=== PATIENT | female | born 1995 | race Caucasian/White ===

== ENCOUNTER 2019-11-14 04:50 | Inpatient (IN) | payer BC, SELFPAY ==
[2019-11-14] VITALS (131 sets, daily range): BP systolic 81–151; BP diastolic 38–113; PULSE 51–161; TEMP 36.8–37.3; O2SAT 95–100; BMI 35.2
[2019-11-14 05:36] LABS: Basophils Percent Auto 0.3 % (0.2-1.2); Eosinophils Absolute Auto 0.1 K/mm3 (0-0.3); Eosinophils Percent Auto 0.9 % (0-4.4); Hematocrit 34.4 % (37.0-47.0); Hemoglobin 11.1 g/dL (12.0-15.0); Immature Granulocyte Absolute 0.15 K/mm3 (0.00-0.031); Lymphocytes Percent Auto 23.5 % (18.3-44.2); Mean Corpuscular HGB Conc 32.3 g/dl (32-36); Mean Corpuscular Volume 83.7 fl (80-100); Mean Platelet Volume 11.8 fl (7.4-10.4); Monocytes Percent Auto 6.8 % (2.6-8.5); Neutrophils Absolute Auto 10.1 K/mm3 (1.3-6.7); Neutrophils Percent Auto 67.5 % (45.5-73.1); Platelet Count Result 253 k/mm3 (150-375); Red Blood Count 4.11 M/mm3 (4.2-5.4); White Blood Count 14.9 K/mm3 (4.5-10.0)
--- NOTE | 2019-11-14 05:36 | LDADM ---
This patient, Marlyn Loya, was admitted to Labor/Delivery/Recovery 105 on 11/14/19 at 04:50. Plans for labor, pain management and were discussed with patient. Patient/family oriented to hospital policies and general routines including ID bracelet, bed and alarms, visiting hours, pain management, procedures, bathroom and other care routines, personal items, smoking policy, room service/diet and guest tray routines, security routines, and visiting hours. Patient/Family are encouraged to report perceived risks to care and to ask questions if they do not understand what they are told or what they should do. See OBIX for further documentation.
[2019-11-14] MEDS: LACTATED RINGERS 1,000 ML 125 ML IV CONT ×4 (05:37→19:59)
[2019-11-14] MEDS: AMPICILLIN 2 GM/NS 100 ML 2 GM/100 ML BAG IVPB (05:39)
--- NOTE | 2019-11-14 06:42 | PM.IMHP ---
H&P: HPI History of Present Illness Chief complaint: INDUCTION OF LABOR Narrative: Marlyn Loya is a 24 year old female with a last menstrual period 02/07/2019, EDC of 11/14/2019 confirmed by 9 week ultrasound presents at term in for induction of labor. She is positive for group B strep she had a positive antibody screen which remained low an insignificant. She has received 1 dose of ampicillin at this time Review of Systems Review of Systems: All systems reviewed & are unremarkable except as noted in HPI and below PMFSH Family History Family History Other Unknown family medical history Social History Social History Smoking status: Never smoker Substance use: never Spiritual care concerns: No Meds Home Medications and Allergies Home Medications Medication Instructions Recorded Confirmed Type PNV cmb#95-ferrous fumarate-FA 1 tablet PO DAILY 10/17/19 10/17/19 History [] Allergies Allergy/AdvReac Type Severity Reaction Status Date / Time No Known Allergies Allergy Verified 10/17/19 13:37 Vital Signs Vital Signs - 24 hr 11/14/19 05:30 11/14/19 05:58 11/14/19 06:01 Temperature 99.1 F Pulse Rate 61 79 Blood Pressure 137/80 138/77 11/14/19 06:31 Temperature Pulse Rate 67 Blood Pressure 117/69 Exam Const: General: no acute distress Eyes: General: appearance normal, both eyes and all related structures Neck: Neck: supple and no JVD Thyroid: thyroid normal Resp: Effort & Inspection: normal respiratory effort Auscultation: clear to auscultation bilaterally Cardio: Rate: regular rate Rhythm: regular rhythm Skin: General skin exam: no rashes or lesions noted Extrem: General: normal to inspection and no edema Psych: Mental Status: mental status grossly normal Affect: normal affect H&P: Results Labs Labs: Short CBC 11/14/19 Range/Units 05:30 WBC 14.9 H (4.5-10.0) K/mm3 Hgb 11.1 L (12.0-15.0) g/dL Hct 34.4 L (37.0-47.0) % Plt Count 253 (150-375) k/mm3 Assessment and Plan Additional Plan impression: Postdates and positive group B strep Plan: Medical induction labor, spontaneous vaginal delivery is expected, group B strep prophylaxis is undertaken
[2019-11-14] MEDS: AMPICILLIN 1 GM/NS 50 ML 1 GM/50 ML BAG IVPB ×4 (09:35→21:51)
--- NOTE | 2019-11-14 11:33 | P.PNOB_ITS ---
OB - PN: Subj Subjective Date/time seen: 11/14/19 11:33 cx 3/80/-1 fhts reassuring iupc placed epidural soon OB - PN: Obj Data Labs CBC & Chem 7: 11/14/19 05:30 Labs: Laboratory Results - last 24 hr 11/14/19 11/14/19 05:30 05:30 WBC 14.9 H RBC 4.11 L Hgb 11.1 L Hct 34.4 L MCV 83.7 MCH 27.0 MCHC 32.3 RDW 14.0 Plt Count 253 MPV 11.8 H Immature Gran % (Auto) 1.0 H Neut % (Auto) 67.5 Lymph % (Auto) 23.5 [place] % (Auto) 6.8 Eos % (Auto) 0.9 Baso % (Auto) 0.3 Lymph # (Auto) 3.50 H [place] # (Auto) 1.0 H Eos # (Auto) 0.1 Baso # (Auto) 0.0 Abs Immat Gran (auto) 0.15 H Absolute Neuts (auto) 10.1 H Absolute Nucleated RBC 0.0 Nucleated RBC % 0.0 Antibody Screen Positive OB - PN A/P Time Spent With Patient Time: Total time spent is greater than 50% in coordination of care (as documented) at patient's floor/unit and/or counseling patient:
--- NOTE | 2019-11-14 13:11 | WPDANESEPP ---
Anes - Eval Pre Procedure Procedure: Labor Epidural Date/Time: 11/14/19 13:11 Pre Op Diagnosis: INDUCTION OF LABOR Patient Data Age: 24 Gender: F Height: 1.73 m Weight: 105 kg Last Vital Signs Temp 37.0 C 11/14/19 11:30 Pulse 58 L 11/14/19 13:01 BP 129/65 11/14/19 13:01 Allergies Allergy/AdvReac Type Severity Reaction Status Date / Time No Known Allergies Allergy Verified 10/17/19 13:37 Home Medications Medication Instructions Recorded Confirmed Type PNV cmb#95-ferrous fumarate-FA 1 tablet PO DAILY 10/17/19 10/17/19 History [] hydrocodone-acetaminophen [Meno] 1 tablet PO Q4H PRN #20 tablet 11/14/19 Rx Laboratory Tests 11/14/19 11/14/19 11/14/19 05:30 05:30 05:30 WBC 14.9 K/mm3 H K/mm3 (4.5-10.0) RBC 4.11 M/mm3 L M/mm3 (4.2-5.4) Hgb 11.1 g/dL L g/dL (12.0-15.0) Hct 34.4 % L % (37.0-47.0) MCV 83.7 fl fl (80-100) MCH 27.0 pg pg (26-34) MCHC 32.3 g/dl g/dl (32-36) RDW 14.0 % % (11.5-14.5) Plt Count 253 k/mm3 k/mm3 (150-375) MPV 11.8 fl H fl (7.4-10.4) Immature Gran % (Auto) 1.0 % H % (0-0.5) Neut % (Auto) 67.5 % % (45.5-73.1) Lymph % (Auto) 23.5 % % (18.3-44.2) [place] % (Auto) 6.8 % % (2.6-8.5) Eos % (Auto) 0.9 % % (0-4.4) Baso % (Auto) 0.3 % % (0.2-1.2) Lymph # (Auto) 3.50 K/mm3 H K/mm3 (0.9-3.2) [place] # (Auto) 1.0 K/mm3 H K/mm3 (0.1-0.6) Eos # (Auto) 0.1 K/mm3 K/mm3 (0-0.3) Baso # (Auto) 0.0 K/mm3 K/mm3 (0.0-0.1) Abs Immat Gran (auto) 0.15 K/mm3 H K/mm3 (0.00-0.031) Absolute Neuts (auto) 10.1 K/mm3 H K/mm3 (1.3-6.7) Absolute Nucleated RBC 0.0 K/mm3 K/mm3 (0.0-0.012) Nucleated RBC % 0.0 % % (0.0-0.2) RPR Pending Blood Type Pending Antibody Screen Positive Antibody Identification Pending Antigen Identification Pending JANE, IgG Interpret Pending JANE, Poly Interpret Pending JANE, Complement Interp Pending Patient hx anesthesia problems: none Family hx anesthesia problems: none PMFSH Family History Family History Other Unknown family medical history Social History Social History Smoking status: Never smoker Substance use: never Spiritual care concerns: No Exam Day of Procedure 11/14/19 13:11 Patient weight: obese Heart: regular rate and rhythm Lungs: normal air movement Airway: Mallampati scale class II Neurological: alert and oriented
[2019-11-14] MEDS: ONDANSETRON INJ 4 MG/2 ML VIAL IV PUSH ×2 (13:16→20:01)
--- NOTE | 2019-11-14 14:19 | P.PNOB_ITS ---
OB - PN: Subj Subjective Date/time seen: 11/14/19 14:19 cx4 by rn exam fhts rassuring epidural in OB - PN: Obj Data Labs CBC & Chem 7: 11/14/19 05:30 Labs: Laboratory Results - last 24 hr 11/14/19 11/14/19 05:30 05:30 WBC 14.9 H RBC 4.11 L Hgb 11.1 L Hct 34.4 L MCV 83.7 MCH 27.0 MCHC 32.3 RDW 14.0 Plt Count 253 MPV 11.8 H Immature Gran % (Auto) 1.0 H Neut % (Auto) 67.5 Lymph % (Auto) 23.5 [place] % (Auto) 6.8 Eos % (Auto) 0.9 Baso % (Auto) 0.3 Lymph # (Auto) 3.50 H [place] # (Auto) 1.0 H Eos # (Auto) 0.1 Baso # (Auto) 0.0 Abs Immat Gran (auto) 0.15 H Absolute Neuts (auto) 10.1 H Absolute Nucleated RBC 0.0 Nucleated RBC % 0.0 Antibody Screen Positive OB - PN A/P Time Spent With Patient Time: Total time spent is greater than 50% in coordination of care (as documented) at patient's floor/unit and/or counseling patient:
[2019-11-14] MEDS: PHENYLEPHRINE 1,000 MCG/10 ML SYRINGE 100 MCG IV PUSH ×2 (14:36→15:29)
--- NOTE | 2019-11-14 16:34 | P.PNOB_ITS ---
OB - PN: Subj Subjective Date/time seen: 11/14/19 16:34 cx still 4 but head coming down fhts reassuring good ucs per iupc OB - PN: Obj Data Labs CBC & Chem 7: 11/14/19 05:30 Labs: Laboratory Results - last 24 hr 11/14/19 11/14/19 11/14/19 05:03 05:30 05:30 WBC 14.9 H RBC 4.11 L Hgb 11.1 L Hct 34.4 L MCV 83.7 MCH 27.0 MCHC 32.3 RDW 14.0 Plt Count 253 MPV 11.8 H Immature Gran % (Auto) 1.0 H Neut % (Auto) 67.5 Lymph % (Auto) 23.5 [place] % (Auto) 6.8 Eos % (Auto) 0.9 Baso % (Auto) 0.3 Lymph # (Auto) 3.50 H [place] # (Auto) 1.0 H Eos # (Auto) 0.1 Baso # (Auto) 0.0 Abs Immat Gran (auto) 0.15 H Absolute Neuts (auto) 10.1 H Absolute Nucleated RBC 0.0 Nucleated RBC % 0.0 Blood Type A Positive Antibody Screen Positive Antibody Identification Anti-S JANE, IgG Interpret Not Performed JANE, Poly Interpret Negative JANE, Complement Interp Not Performed Enhanced Crossmatch See Detail OB - PN A/P Time Spent With Patient Time: Total time spent is greater than 50% in coordination of care (as docum ented) at patient's floor/unit and/or counseling patient:
--- NOTE | 2019-11-14 23:12 | PM.OBPRVD ---
OB - Delivery Note Procedure Procedure: Patient pushed for a spontaneous vaginal delivery. The fetus was delivered atraumatically and placed on the maternal abdomen. The cord was clamped and cut after 1 minute of life. The cord was double clamped and cut and a segment of cord was collected for cord gases. Cord blood was collected for blood type and Coomb's testing. The placenta delivered spontaneously and was noted to be intact. The perineum was inspected and there were no perineal lacerations. A small periurethral laceration was noted. The laceration was repaired with 3-0 vicryl in the usual fashion. The uterus was firm and good hemostasis was noted. The patient and fetus were stable in the delivery room. events: Labor Induction Delivery augmentation: pitocin Delivery monitor: external FHT Route of delivery: Episiotomy description: None Laceration description: Periurethral - 1st Degree Delivery repair: vicryl Specimen: No Estimated blood loss (mL): 250 Anesthesia type: Epidural Disposition: floor () Complications: No immediate complications Baby Date of : 11/14/19 Time of : 23:02 Weeks of gestation at delivery: 40 gender: Male Weight (pounds): 7 Weight (ounces): 4 presentation: vertex position: Right Occiput Anterior Placenta delivery description: Spontaneous cord vessel description: 3 Vessels score one minute: 8 score five minutes: 9
[2019-11-15] VITALS (14 sets, daily range): BP systolic 98–136; BP diastolic 58–100; PULSE 63–104; RESP 16; TEMP 36.2–36.7; O2SAT 99–100
[2019-11-15] MEDS: WITCH HAZEL 40 PADS 1 PAD TOPICAL (01:45)
[2019-11-15] MEDS: BENZOCAINE 20% AER SPR (*SP) 56 GM CAN 1 SPRAY TOPICAL (01:45)
--- NOTE | 2019-11-15 02:00 | OBPPTRN ---
Patient transferred to post room #288 via wheelchair. Support person present. Oriented to unit, room, information board, rooming in, admission packet and security measures. Patient verbalizes understanding. with patient.
[2019-11-15 05:52] LABS: Hematocrit 30.6 % (37.0-47.0); Hemoglobin 9.9 g/dL (12.0-15.0)
--- NOTE | 2019-11-15 07:01 | PM.OBPNVD ---
OB - PN: Subj Subjective Date/time seen: 11/15/19 07:01 Patient comments: no complaints and pain well controlled baby status: doing well and nursing well OB - PN: Obj Data Labs CBC & Chem 7: 11/15/19 05:27 Labs: Laboratory Results - last 24 hr 11/14/19 11/14/19 11/15/19 05:03 05:30 05:27 Hgb 9.9 L Hct 30.6 L Blood Type A Positive Antibody Screen Positive Antibody Identification Anti-S JANE, IgG Interpret Not Performed JANE, Poly Interpret Negative JANE, Complement Interp Not Performed Enhanced Crossmatch See Detail OB - PN A/P Plan day: 1 Plan: routine care Time Spent With Patient Time: Total time spent is greater than 50% in coordination of care (as documented) at patient's floor/unit and/or counseling patient: Time with patient: less than 15 minutes Review of Systems Review of Systems: All systems reviewed & are unremarkable except as noted in HPI and below Exam Const: General: no acute distress Eyes: General: appearance normal, both eyes and all related structures Neck: Neck: supple and no JVD Thyroid: thyroid normal Resp: Effort & Inspection: normal respiratory effort Auscultation: clear to auscultation bilaterally Cardio: Rate: regular rate Rhythm: regular rhythm GI: Inspection: non-distended GI Palp: Yes Soft to palpation, No Tenderness to palpation present (GI) and No Guarding due to palpation present (GI) Auscultation: normal bowel sounds : General: Yes bladder normal to palpation External Female Exam: normal external appearance Speculum Exam - Vagina: normal vaginal discharge and No vaginal bleeding Speculum Exam - Cervix: nontender Bimanual exam- vagina & uterus: bladder normal to palpation and No Cervical tenderness present OB/external & speculum: No vaginal bleeding Skin: General skin exam: no rashes or lesions noted Extrem: General: normal to inspection and no edema Psych: Mental Status: mental status grossly normal Affect: normal affect
[2019-11-15 07:52] LABS: Rapid Plasma Reagin Non-Reactive (NonReactive)
[2019-11-15] MEDS: MULTIVIT/MIN/PREN/FOL AC/IRON TABLET 1 TAB PO (08:07)
[2019-11-15] MEDS: POLYSACCHARIDE IRON COMPLEX 150 MG CAPSULE PO ×2 (08:08→16:06)
[2019-11-15] MEDS: IBUPROFEN 600 MG TABLET PO ×2 (08:08→16:07)
[2019-11-15] MEDS: DOCUSATE SODIUM 100 MG CAPSULE PO ×2 (08:08→16:06)
--- NOTE | 2019-11-15 13:11 | WPDANLDPN2 ---
Anes-Prog Note L&D Date/Time: 11/15/19 13:11 Comfortable throughout: labor and delivery Neuraxial method: epidural Epidural/Spinal procedure site: clean & non-tender Neuro status: Neuro function grossly intact. Cardiovascular status: normal Respiratory status: normal Airway patency: baseline Mental status: baseline Post-Op hydration status: normal Vital Signs: Last Vital Signs Temp 36.2 C L 11/15/19 08:30 Pulse 77 11/15/19 08:30 Resp 16 11/15/19 08:30 BP 128/59 L 11/15/19 08:30 Pulse Ox 99 11/15/19 08:30 I/O: Intake & Output 11/14/19 11/15/19 11/15/19 23:59 07:59 15:59 Intake Total 2100 Output Total 189 Balance 2100 -189 Post-procedural complaints: none Patient feedback: Patient satisfied with anesthetic care.
--- NOTE | 2019-11-15 22:00 | PC.NURSE ---
Patient viewed the discharge video Mother & Baby Care, The First Two Weeks . Patient was given the opportunity and encouraged to ask questions. Patient verbalized understanding of information shared and has been given the mother/baby guide for home reference.
[2019-11-16] MEDS: IBUPROFEN 600 MG TABLET PO (05:38)
--- NOTE | 2019-11-16 06:54 | PM.OBPNVD ---
OB - PN: Subj Subjective Date/time seen: 11/16/19 06:54 Patient comments: no complaints and pain well controlled baby status: doing well and nursing well OB - PN: Obj Data Labs CBC & Chem 7: 11/15/19 05:27 Labs: Laboratory Results - last 24 hr 11/14/19 05:30 RPR Non-reactive OB - PN A/P Plan day: 2 Plan: routine care, discharge home and follow up 6 weeks Time Spent With Patient Time: Total time spent is greater than 50% in coordination of care (as documented) at patient's floor/unit and/or counseling patient: Time with patient: less than 15 minutes Review of Systems Review of Systems: All systems reviewed & are unremarkable except as noted in HPI and below Exam Const: General: no acute distress Eyes: General: appearance normal, both eyes and all related structures Neck: Neck: supple and no JVD Thyroid: thyroid normal Resp: Effort & Inspection: normal respiratory effort Auscultation: clear to auscultation bilaterally Cardio: Rate: regular rate Rhythm: regular rhythm GI: Inspection: non-distended GI Palp: Yes Soft to palpation, No Tenderness to palpation present (GI) and No Guarding due to palpation present (GI) Auscultation: normal bowel sounds : General: Yes bladder normal to palpation External Female Exam: normal external appearance Speculum Exam - Vagina: normal vaginal discharge and No vaginal bleeding Speculum Exam - Cervix: nontender Bimanual exam- vagina & uterus: bladder normal to palpation and No Cervical tenderness present OB/external & speculum: No vaginal bleeding Skin: General skin exam: no rashes or lesions noted Extrem: General: normal to inspection and no edema Psych: Mental Status: mental status grossly normal Affect: normal affect
--- NOTE | 2019-11-16 06:55 | PM.DS ---
DS: Diagnosis Admitting Diagnosis Admitting Diagnosis: term/gbs DS: Summary Time Spent with Patient Time attestation: Total time spent providing and/or coordinating discharge services: Exam Const: General: no acute distress Eyes: General: appearance normal, both eyes and all related structures Neck: Neck: supple and no JVD Thyroid: thyroid normal Resp: Effort & Inspection: normal respiratory effort Auscultation: clear to auscultation bilaterally Cardio: Rate: regular rate Rhythm: regular rhythm GI: Inspection: non-distended GI Palp: Yes Soft to palpation, No Tenderness to palpation present (GI) and No Guarding due to palpation present (GI) Auscultation: normal bowel sounds : General: Yes bladder normal to palpation External Female Exam: normal external appearance Speculum Exam - Vagina: normal vaginal discharge and No vaginal bleeding Speculum Exam - Cervix: nontender Bimanual exam- vagina & uterus: bladder normal to palpation and No Cervical tenderness present OB/external & speculum: No vaginal bleeding Skin: General skin exam: no rashes or lesions noted Extrem: General: normal to inspection and no edema Psych: Mental Status: mental status grossly normal Affect: normal affect DS: Data Data Completed and Pending Labs on day of discharge: Labs from last 24 hours 11/14/19 05:30 RPR Non-reactive Discharge Plan Discharge Attending physician on discharge: Evan Baca Discharging Clinician: Evan Baca Patient Disposition: Home, Self-Care Activity: may shower, no straining, may drive after 2 weeks and pelvic rest Diet: heart healthy Patient Instructions: Antibiotic Form Stand Alone Forms: General Discharge Information Follow-up/Referrals: Evan Baca MD [Physician] - Discharge Medications: New hydrocodone-acetaminophen [[place]] 5-325 mg tablet 1 tablet PO Q4H PRN (Reason: pain) Qty: 20 RF: 0 Continued PNV cmb#95-ferrous fumarate-FA [] 28 mg iron- 800 mcg Tablet 1 tablet PO DAILY RF: 0 Date of admission: 11/14/19 04:50 Primary Care Provider: JavierMaykel Admitting Provider: Evan Baca Attending physician on admission: Evan Baca
[2019-11-16 08:00] VITALS: BP 115/77; PULSE 63; RESP 18; TEMP 36.5; O2SAT 100
[2019-11-16] MEDS: BENZOCAINE 20% AER SPR (*SP) 56 GM CAN 1 SPRAY TOPICAL (08:32)
[2019-11-16] MEDS: WITCH HAZEL 40 PADS 1 PAD TOPICAL (08:32)
[2019-11-16] MEDS: POLYSACCHARIDE IRON COMPLEX 150 MG CAPSULE PO (08:32)
[2019-11-16] MEDS: DOCUSATE SODIUM 100 MG CAPSULE PO (08:32)
[2019-11-16] MEDS: MULTIVIT/MIN/PREN/FOL AC/IRON TABLET 1 TAB PO (08:33)
--- NOTE | 2019-11-16 09:56 | PC.NURSE ---
Self care and infant care discharge instructions given including follow up visit date and time. Very pleasant and cooperative. Mother verbalized understanding. FOB at side.
[2019-11-17 09:47] VITALS: BP 133/81; PULSE 75; RESP 20; TEMP 36.5
== END 2019-11-16 11:00 | disposition home or self-care (01) | DRG 807 ==
LOC: ANHLDR 06:46 → ANHOB2 11-15 02:01
PROVIDERS: Student in an Organized Health Care Education/Training Program; Admitting Provider Obstetrics & Gynecology; PCP Family Medicine Sports Medicine; Visit Provider Obstetrics & Gynecology
DX: O99.824 Streptococcus B carrier state complicating childbirth (principal); Z37.0 Single live birth; Z3A.40 40 weeks gestation of pregnancy; O36.8330 Maternal care for abnormalities of the fetal heart rate or rhythm, third trimester, not applicable or unspecified; O71.82 Other specified trauma to perineum and vulva; O99.214 Obesity complicating childbirth; E66.9 Obesity, unspecified
CPT/HCPCS: 36415; 85014; 85018; 85025; 86592; 86850; 86860; 86870; 86880; 86900; 86901; 86902; 86905; 86922; 86971; A9270; J0290; J2370; J2405; J2590; J2795; J3010; J7120

== ENCOUNTER 2019-12-03 05:00 | Emergency (ER) | payer BC, SELFPAY ==
--- NOTE | ~2019-12-03 | US_ITS ---
US right upper quadrant DATE: 12/03/2019 07:17 INDICATION: Right upper quadrant abdominal pain, radiating to shoulder. TECHNIQUE: Real-time imaging of liver, pancreas, gallbladder areas COMPARISON: None FINDINGS: No hepatic or pancreatic space-occupying mass lesion is evident. Normal hepatic portal veno us flow direction. No gallstones or gallbladder wall thickening. The common bile duct measures 6.4 mm, which is mildly dilated. Recommend correlation with serum bilir ubin levels. Consider further evaluation with MRCP or ERCP as clinically appropriate. IMPRESSION: Nonspecific mild common bile duct dilatation up to 6.4 mm; consider further evaluation wi MRCP or ERCP Reviewed, dictated and finalized at [facility] Reviewed, dictated and finalized at [facility]. IMPRESSION: Nonspecific mild common bile duct dilatation up to 6.4 mm; consider further evaluation with MRCP or ERCP
[2019-12-03 05:02] VITALS: BP 123/68; PULSE 61; RESP 20; TEMP 36.6; O2SAT 100
[2019-12-03 05:23] LABS: Basophils Percent Auto 0.2 % (0.2-1.2); Eosinophils Absolute Auto 0.2 K/mm3 (0-0.3); Eosinophils Percent Auto 2.7 % (0-4.4); Hematocrit 36.8 % (37.0-47.0); Hemoglobin 11.6 g/dL (12.0-15.0); Immature Granulocyte Absolute 0.03 K/mm3 (0.00-0.031); Immature Granulocyte Percent A 0.5 % (0-0.5); Lymphocytes Absolute Auto 1.69 K/mm3 (0.9-3.2); Lymphocytes Percent Auto 25.7 % (18.3-44.2); Mean Corpuscular HGB Conc 31.5 g/dl (32-36); Mean Corpuscular Volume 82.3 fl (80-100); Mean Platelet Volume 11.1 fl (7.4-10.4); Monocytes Absolute Auto 0.5 K/mm3 (0.1-0.6); Monocytes Percent Auto 6.8 % (2.6-8.5); Neutrophils Absolute Auto 4.2 K/mm3 (1.3-6.7); Neutrophils Percent Auto 64.1 % (45.5-73.1); Platelet Count Result 333 k/mm3 (150-375); Red Blood Count 4.47 M/mm3 (4.2-5.4); Red Cell Distribution Width 13.2 % (11.5-14.5); White Blood Count 6.6 K/mm3 (4.5-10.0)
[2019-12-03 05:39] LABS: Alanine Aminotransferase 86 U/L (4-35); Albumin Level 4.3 g/dL (3.5-5.1); Alkaline Phosphatase 210 U/L (38-126); Aspartate Amino Transferase 328 U/L (14-36); Bilirubin,Total 1.5 mg/dL (0.2-1.3); Blood Urea Nitrogen 11 mg/dL (7-17); Calcium 9.2 mg/dL (8.4-10.2); Carbon Dioxide 25 mmol/L (22-30); Chloride 106 mmol/L (98-107); Estimated Glomerular Filt Rate > 60; Glucose 94 mg/dL (65-105); Lipase 120 U/L (23-300); Potassium 3.9 mmol/L (3.4-5.0); Sodium 139 mmol/L (137-145)
--- NOTE | 2019-12-03 05:47 | ED.ABDPAIN ---
HPI - Abdominal Pain General Chief Complaint: Abdominal Pain <Elissa Moore MD - Last Filed: 12/03/19 05:55> Stated Complaint: ABD PAIN <Elissa Moore MD - Last Filed: 12/03/19 05:55> Time Seen by Provider: 12/03/19 05:13 <Elissa Moore MD - Last Filed: 12/03/19 05:55> Source: patient <Elissa Moore MD - Last Filed: 12/03/19 05:55> Mode of arrival: ambulatory <Elissa Moore MD - Last Filed: 12/03/19 05:55> Limitations: no limitations <Elissa Moore MD - Last Filed: 12/03/19 05:55> History of Present Illness HPI narrative: Patient is a 24-year-old female who presents to the emergency department with report of right upper quadrant abdominal pain. Patient reports onset of symptoms at approximately 10:30 PM last night. Patient states pain has eased some, but is still present. Patient reports this is the fourth episode she has had in the past few weeks. Patient just had a baby on 11/14/2019. Patient states the pain starts as a burning sensation in the right upper quadrant. She states the pain is currently an aching sensation with radiation into her back. Patient states prior episodes have lasted anywhere from 1 to 3 hours. Tonight's episode has not subsided, prompting patient to seek medical care. Patient reports nausea but denies any vomiting. She denies any fever, chills, sweats, or urinary symptoms. Patient denies any diarrhea or constipation. Patient is currently breast-feeding/pumping. <Elissa Moore MD - Last Filed: 12/03/19 05:55> MD elicited complaint: abdominal pain <Elissa Moore MD - Last Filed: 12/03/19 05:55> Onset (ago): week(s) <Elissa Moore MD - Last Filed: 12/03/19 05:55> Pain Consistency: constant and intermittent <Elissa Moore MD - Last Filed: 12/03/19 05:55> Location: RUQ <Elissa Moore MD - Last Filed: 12/03/19 05:55> Quality: aching and burning <Elissa Moore MD - Last Filed: 12/03/19 05:55> Radiation: back <Elissa Moore MD - Last Filed: 12/03/19 05:55> Associated symptoms: nausea and vomiting <Elissa Moore MD - Last Filed: 12/03/19 05:55> Treatments prior to arrival: other (Tylenol at 11 PM) <Elissa Moore MD - Last Filed: 12/03/19 05:55> Related Data Home Medications: Home Medications Medication Instructions Recorded Confirmed No Home Medications 12/03/19 12/03/19 <Elissa Moore MD - Last Filed: 12/03/19 05:55> Allergies/Adverse Reactions: Allergies Allergy/AdvReac Type Severity Reaction Status Date / Time No Known Allergies Allergy Verified 12/03/19 05:01 <Elissa Moore MD - Last Filed: 12/03/19 05:55> Review of Systems Review of Systems: All systems reviewed & are unremarkable except as noted in HPI and below <Elissa Moore MD - Last Filed: 12/03/19 05:55> Constitutional: Constitutional: Denies chills and Denies fever(s) <Elissa Moore MD - Last Filed: 12/03/19 05:55> Gastrointestinal: Gastrointestinal: Reports abdominal pain, Denies constipation, Denies diarrhea, Reports nausea and Denies vomiting <Elissa Moore MD - Last Filed: 12/03/19 05:55> Genitourinary: Genitourinary: Denies hematuria and Denies dysuria <Elissa Moore MD - Last Filed: 12/03/19 05:55> Musculoskeletal: Musculoskeletal: Reports back pain <Elissa Moore MD - Last Filed: 12/03/19 05:55> PMFSH Past Medical History Medical History: Medical History (Updated 12/03/19 @ 09:28 by Vidya Donald MD) No significant past medical history <Elissa Moore MD - Last Filed: 12/03/19 05:55> Surgical History Surgical History: Surgical History (Updated 12/03/19 @ 05:54 by Elissa Moore MD) History of tonsillectomy Hx of tympanostomy tubes <Elissa Moore MD - Last Filed: 12/03/19 05:55> Social History Social History
[2019-12-03 05:50] LABS: Add Urine Microscopic? YES; Appearance Urine Clear (Clear); Bacteria Urine Trace /hpf; Bilirubin Urine Negative (Negative); Blood Urine Negative (Negative); Color Urine Yellow (Yellow); Glucose Urine UA Negative (Negative); Ketones Urine Negative (Negative); Leukocyte Esterase Ur 1+ LEU/UL (Negative); Mucus Urine Rare /lpf; Nitrate Urine Negative (Negative); Protein Urine 1+ mg/dL (Negative); Specific Grav Ur 1.027 (1.001-1.035); WBC Urine 16-20 /hpf
[2019-12-03] MEDS: DICYCLOMINE HCL INJ 20 MG/2 ML VIAL IM (05:53)
[2019-12-03] MEDS: ONDANSETRON INJ 4 MG/2 ML VIAL IV PUSH (05:55)
[2019-12-03 06:28] VITALS: BP 121/68; PULSE 54; RESP 18; O2SAT 97
[2019-12-03] MEDS: KETOROLAC 30 MG/ML VIAL (*BKC) IV PUSH (08:15)
[2019-12-03 10:10] VITALS: BP 128/72; PULSE 44; RESP 16; O2SAT 100
== END 2019-12-03 10:10 | disposition home or self-care (01) ==
PROVIDERS: Emergency Medicine; Emergency Provider General Practice; PCP Family Medicine Sports Medicine
DX: K80.50 Calculus of bile duct without cholangitis or cholecystitis without obstruction (principal); R94.5 Abnormal results of liver function studies
CPT/HCPCS: 36415; 76705; 80053; 81001; 81025; 83690; 85025; 87086; 87088; 96372; 96374; 96375; 99284; J0131; J0500; J1885; J2405

== ENCOUNTER 2020-02-05 06:37 | Outpatient (CLI) | payer BC, SELFPAY | END 2020-02-05 06:38 | disposition home or self-care (01) | PROVIDERS: PCP Family Medicine Sports Medicine; Visit Provider Surgery | DX: Z01.818 Encounter for other preprocedural examination (principal); Z11.59 Encounter for screening for other viral diseases | CPT/HCPCS: 87635; C9803; U0003 ==

== ENCOUNTER 2020-02-05 09:12 | Outpatient (CLI) | payer BC, SELFPAY ==
[2020-02-05 09:37] LABS: Alanine Aminotransferase 35 U/L (4-35); Alkaline Phosphatase 118 U/L (38-126); Amylase 84 U/L (30-110); Aspartate Amino Transferase 29 U/L (14-36); Bilirubin,Total 0.8 mg/dL (0.2-1.3); Blood Urea Nitrogen 9 mg/dL (7-17); Calcium 10.2 mg/dL (8.4-10.2); Carbon Dioxide 29 mmol/L (22-30); Chloride 106 mmol/L (98-107); Estimated Glomerular Filt Rate > 60; Glucose 90 mg/dL (65-105); Lipase 88 U/L (23-300); Potassium 3.8 mmol/L (3.4-5.0); Sodium 141 mmol/L (137-145)
== END 2020-02-05 09:13 | disposition home or self-care (01) ==
PROVIDERS: PCP Family Medicine Sports Medicine; Visit Provider Anesthesiology
DX: Z01.818 Encounter for other preprocedural examination (principal); Z11.59 Encounter for screening for other viral diseases; K82.8 Other specified diseases of gallbladder
CPT/HCPCS: 36415; 80053; 82150; 82248; 83690

== ENCOUNTER 2020-02-07 08:51 | Outpatient (CLI) | payer BC, SELFPAY ==
[2020-02-07 17:59] LABS: SARS-CoV-2 RNA PCR Negative
== END 2020-02-07 08:52 | disposition home or self-care (01) ==
LOC: ANHCOVIDDT 08:52
PROVIDERS: PCP Family Medicine Sports Medicine; Visit Provider Surgery
DX: Z01.812 Encounter for preprocedural laboratory examination (principal); Z20.828 Contact with and (suspected) exposure to other viral communicable diseases
CPT/HCPCS: 87635; C9803; U0003

== ENCOUNTER 2020-02-08 02:30 | Day surgery (SDC) | payer BC, SELFPAY ==
[2020-01-31 16:22] VITALS: BMI 28.5
--- NOTE | 2020-02-07 12:19 | P.PNAN_ITS ---
Anes - Initial Pre Proc Eval Procedure: Operation Date: 02/08/20 12:30 Proposed Procedures p Laparoscopic Cholecystectomy with Intra Operative Cholangiograms - Neo Lux DO Date/Time: 02/07/20 12:19 Surgeon: Neo Lux DO Pre Op Diagnosis: biliary dyskenisia, elevated LFT's Patient Data Age: 24 Gender: F Height: 5 ft 8.5 in Weight: 86.2 kg Allergies Allergy/AdvReac Type Severity Reaction Status Date / Time No Known Allergies Allergy Verified 01/31/20 16:31 Home Medications Medication Instructions Recorded Confirmed Type 248-qcmn-xnarn-[id number] 1 cap PO DAILY 01/31/20 01/31/20 History [One-A-Day Women's 1] Patient hx anesthesia problems: post op nausea/vomiting (will use Scopolamine and Zofran) Family hx [facility] problems: [facility] Social History Social History Smoking status: Never smoker Alcohol intake: never Substance use: never Additional occupation/education comments: Nurse at [employer] Gender identity (if verbalized by the patient): Female Spiritual care concerns: No Anes - Eval Final PreProcedure Day of Procedure 02/07/20 12:19 Patient weight: overweight Heart: regular rate and rhythm Lungs: clear to auscultation Airway: Mallampati scale class II Neurological: alert and oriented Last oral intake: >/= 8 hours ASA classification: II Emergent: no Anesthetic plan: proceed Anesthesia type and monitoring: general ETT and standard monitoring Informed Consent: The patient's anesthetic plan and its attendant risks and benefits were discussed with the patient/family/POA. Questions were solicited and answers provided to the satisfaction of the patient/family/POA.
[2020-02-08] VITALS (11 sets, daily range): BP systolic 113–130; BP diastolic 60–82; PULSE 48–88; RESP 14–24; TEMP 36.3–36.7; O2SAT 98–100; BMI 29.3
--- NOTE | ~2020-02-08 | XR_ITS ---
XR cholangiogram surg 1st inj DATE: 02/08/2020 14:00 INDICATION: Left, cholecystectomy. Gallstones. TECHNIQUE: Serial spot C-arm images of the right upper quadrant during intra-operative injection of t he cystic duct remnant COMPARISON: None FINDINGS: There is meniscus sign at the distal common bile duct due to distal common bile duct obstru ction, likely by stone, with proximal common bile duct and hepatic and intrahepatic duct dilatation d ue to nearly complete obstruction. Additional possible filling defects may be additional stones and/ or air bubbles. IMPRESSION: Distal common bile duct nearly complete obstruction, likely secondary to distal common bi le duct stone Reviewed, dictated and finalized at [facility] Reviewed, dictated and finalized at [facility]. IMPRESSION: Distal common bile duct nearly complete obstruction, likely seconda ry to distal common bile duct stone
--- NOTE | ~2020-02-08 | XR_ITS ---
EXAMINATION: XR ERCP DATE: 02/09/2020 11:55 INDICATION: Abnormal intraoperative cholangiogram TECHNIQUE: Seven intraoperative fluoroscopic images obtained during endoscopic retrograde cholangiopa ncreatography (ERCP) are submitted for review. Total fluoroscopic time was 55 seconds. COMPARISON: None. FINDINGS: Fluoroscopic images demonstrate an endoscope in the second portion of the duodenum. There i s retrograde opacification of a normal caliber common bile duct. Cholecystectomy clips are noted. IMPRESSION: 1. Normal caliber common bile duct. Please refer to the ERCP procedure note for additional details. Reviewed, dictated and finalized at [facility].
[2020-02-08] MEDS: LACTATED RINGERS 1,000 ML 30 ML IV CONT ×2 (11:20→14:07)
[2020-02-08] MEDS: ONDANSETRON INJ 4 MG/2 ML VIAL IV PUSH ×2 (11:20→14:39)
[2020-02-08] MEDS: SCOPOLAMINE 1.5 MG PATCH TRANSDERM (11:20)
--- NOTE | 2020-02-08 12:36 | WPDHPUPDATE1 ---
History and Physical Update Update Date/Time: 02/08/20 12:36 History and Physical has been reviewed, including an updated exam of the patient. There are NO changes in the patient's condition. Risks, benefits, and alternatives have been discussed and questions answered. Patient agrees to proceed with procedure.
[2020-02-08] MEDS: ceFAZolin 2 GM/D5W 50 ML 2 GM/50 ML BAG IVPB (12:56)
[2020-02-08] MEDS: IBUPROFEN IV 800 MG/200 ML 800 MG/200 ML BAG 400 MG IVPB (13:15)
[2020-02-08] MEDS: BUPIVACAINE/EPINEPHRINE 0.5% 30 ML VIAL INFILTRATE (13:29)
--- NOTE | 2020-02-08 13:50 | SUR.OPER ---
Ebl=5ml
--- NOTE | 2020-02-08 14:07 | PM.PROC ---
Procedure Note - Detailed Date of procedure: 02/08/20 Pre-op diagnosis: biliary dyskenisia, elevated LFT's Post-op diagnosis: other (Choledocholithiasis) Procedure performed: Laparoscopic Cholecystectomy with intraoperative cholangiogram Description of procedure: Procedure as well as risks, benefits, and alternatives were discussed with patient. Written consent was obtained and placed in chart prior to procedure. The patient was brought back to surgical suite. Patient was placed in supine position on operating table. Time-out was done to confirm patient and procedure. Patient was then intubated by the anesthesia department. Abdomen was prepped and draped in sterile fashion using chlorhexidine prep. 0.5% bupivacaine with epinephrine was infiltrated at each site of incision. An 11 millimeter vertical incision was made at the inferior portion of the umbilicus using a 15 blade scalpel. Blunt dissection was carried down to the linea alba. The linea alba was then incised using a 15 blade scalpel. The peritoneum was then bluntly entered. An 11 millimeter trocar was inserted and cabon dioxied insuflation was used to create a pneumoperitoneum. The camera was inserted and the abdomen was inspected. The patient was placed in reverse Trendelenberg position and rotated slightly to the left. A 5 millimeter incision was made in the epigastric region, and a 5 millimeter trocar was inserted under direct visualization. Two 5 millimeter incisions were made in the right upper quadrant, and two 5 millimeter trocars were inserted under direct visualization. The gallbladder was identified and grasped at the fundus and retracted superiorly. It was then grasped at the infundibulum retracted laterally. Careful dissection around the neck of the gallbladder was performed using blunt dissection with a [place] grasper and hook electrocautery. The cystic duct was identified, and a window was created behind it. The cystic artery was also identified and a window was created behind it. The critical view of safety was identified, visualizing the cystic duct running directly into the neck of the gallbladder, and the cystic artery running directly into the wall of the gallbladder. A 5 millimeter clip admission discharge rn was then used to place 2 clips proximally and 1 clip distally on the cystic artery. It was then transected using endoscopic scissors. A Jordan clamp was then placed across the neck of the gallbladder and a cholangiocatheter was advanced into the distal neck of the gallbladder. Bile was able to be aspirated, and the catheter flushed with saline with ease. The patient was flattened out in bed and fluoroscopy was used to obtain an intraoperative cholangiogram with Omnipaque contrast. The images were sent to the radiologist for interpretation. The patient was then placed back in reverse Trendelenburg position. A 5 mm Endoclip admission discharge rn was then used to place 2 clips proximally 1 clip distally on the cystic duct, and then it was transected using endoscopic scissors. Once safely away from the stalin hepatitis, the gallbladder was dissected free from the liver bed using hook electrocautery. Hemostasis was achieved along the way. The gallbladder was removed completely and then removed through the subxiphoid port. The liver bed was then inspected. Hemostasis appeared adequate, and our clips appeared secure. The area was gently irrigated with sterile saline. No other abnormalities were seen. The patient was flattened out in bed, and 1 final inspection was made around the abdominal cavity. The ports were then removed under direct visualization, the camera was removed, and the pneumoperitoneum was released. The fascia of the umbilical incision was approximated using an 0 Vicryl [id number]-yx-lymvk suture. The skin of the incisions was approximated using 4-0 Monocryl subcuticular sutures. Exofin glue was applied on top. The patient was then awakened from anesthesia, extubated, and transferred to
--- NOTE | 2020-02-08 15:28 | ADMGEN ---
This patient, Marlyn Loya, was admitted to 2 Medical Room 259-01. Patient/family oriented to hospital policies and general routines including ID bracelet, bed and alarms, visiting hours, pain management, procedures, bathroom and other care routines, personal items, smoking policy, room service/diet, and visiting hours. Valuables list has been completed. Information on how to activate the Rapid Response Team has been discussed. Patient/Family are encouraged to report perceived risks to care and to ask questions if they do not understand what they are told or what they should do.
[2020-02-08] MEDS: LACTATED RINGERS 1,000 ML 100 ML IV CONT (15:51)
--- NOTE | 2020-02-08 16:32 | WPDGICN ---
Assessment and Plan Assessment and plan (1) Choledocholithiasis: Code(s): K80.50 - Calculus of bile duct without cholangitis or cholecystitis without obstruction Status: Acute Assessment and Plan: Patient is status post lap perfecto today. Intraoperative cholangiogram suggest retained common bowel duct gallstone. This likely accounts for her elevated LFTs. Plan is for ERCP hopefully with stone extraction in the morning. LFTs need to be monitored until we are certain that a reason to normal. Will follow with you. (2) Elevated LFTs: Code(s): R79.89 - Other specified abnormal findings of blood chemistry Status: Acute GI Consult Note Consult date/time: 02/08/20 16:32 HPI: Marlyn Loya is a 24 year old female seen in [facility] shown at the request of Dr. tyler almeida. Patient had a lap choly today an intraoperative cholangiogram suggest retained common bile duct gallstone. Patient reports having attacks of right upper quadrant abdominal pain over the last year. She delivered a healthy baby approximately 9 weeks ago. Outpatient workup revealed elevated liver function tests. Ultrasound revealed no evidence of gallstones with minimal elevation to her common bile duct. Today underwent laparoscopic cholecystectomy intraoperative cholangiogram revealed common bile duct gallstone. 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[employer] Gender identity (if verbalized by the patient): Female Spiritual care concerns: No Meds Home Medications and Allergies Home Medications Medication Instructions Recorded Confirmed Type [id number] 1 cap PO DAILY 01/31/20 01/31/20 History [One-A-Day Women's 1] Allergies Allergy/AdvReac Type Severity Reaction Status Date / Time No Known Allergies Allergy Verified 01/31/20 16:31 Vital Signs Vital Signs - 24 hr 02/08/20 11:00 02/08/20 14:07 02/08/20 14:20 Temperature 36.7 C 36.5 C Pulse Rate 58 L 88 62 Respiratory Rate 15 24 H 17 Blood Pressure 130/79 127/69 118/63 Pulse Oximetry 100 100 100 02/08/20 14:35 02/08/20 14:50 02/08/20 15:05 Temperature Pulse Rate 72 50 L 54 L Respiratory Rate 14 16 14 Blood Pressure 123/74 113/65 119/82 Pulse Oximetry 100 98 100 02/08/20 15:30 02/08/20 15:45 02/08/20 16:15 Temperature 36.3 C L 36.3 C L 36.3 C L Pulse Rate 52 L 54 L 53 L Respiratory Rate 16 16 16 Blood Pressure 125/66 126/63 126/72 Pulse Oximetry 99 100 99 Exam Narrative: Exam Narrative: Patient is alert. Status post lap choly this afternoon. She is somewhat a somnolent. HEENT exam reveals her to be anicteric. Lungs are clear. Heart is without murmur. Abdomen bowel sounds are present. She has freshly bandaged laparoscopy scars.
[2020-02-08] MEDS: METOCLOPRAMIDE HCL INJ 10 MG/2 ML VIAL IV PUSH (17:21)
[2020-02-08 17:25] LABS: Alanine Aminotransferase 66 U/L (4-35); Albumin Level 4.5 g/dL (3.5-5.1); Alkaline Phosphatase 177 U/L (38-126); Aspartate Amino Transferase 170 U/L (14-36); Basophils Percent Auto 0.2 % (0.2-1.2); Bilirubin,Total 0.7 mg/dL (0.2-1.3); Eosinophils Percent Auto 0.2 % (0-4.4); Hematocrit 38.4 % (37.0-47.0); Hemoglobin 12.1 g/dL (12.0-15.0); Immature Granulocyte Absolute 0.07 K/mm3 (0.00-0.031); Immature Granulocyte Percent A 0.6 % (0-0.5); Lymphocytes Absolute Auto 0.89 K/mm3 (0.9-3.2); Lymphocytes Percent Auto 7.1 % (18.3-44.2); Mean Corpuscular HGB Conc 31.5 g/dl (32-36); Mean Corpuscular Hemoglobin 25.9 pg (26-34); Mean Corpuscular Volume 82.1 fl (80-100); Mean Platelet Volume 11.8 fl (7.4-10.4); Monocytes Absolute Auto 0.2 K/mm3 (0.1-0.6); Monocytes Percent Auto 1.5 % (2.6-8.5); Neutrophils Absolute Auto 11.3 K/mm3 (1.3-6.7); Neutrophils Percent Auto 90.4 % (45.5-73.1); Platelet Count Result 250 k/mm3 (150-375); Red Blood Count 4.68 M/mm3 (4.2-5.4); Red Cell Distribution Width 13.8 % (11.5-14.5); White Blood Count 12.5 K/mm3 (4.5-10.0)
[2020-02-08 17:29] LABS: Prothrombin Time 13.2 Seconds (11.1-14.7)
[2020-02-08] MEDS: ACETAMINOPHEN 325 MG TABLET 650 MG PO (19:44)
[2020-02-09] VITALS (14 sets, daily range): BP systolic 108–133; BP diastolic 57–82; PULSE 16–70; RESP 14–20; TEMP 36.2–37.2; O2SAT 99–100
[2020-02-09 05:39] LABS: Hematocrit 36.5 % (37.0-47.0); Hemoglobin 11.6 g/dL (12.0-15.0); Mean Corpuscular HGB Conc 31.8 g/dl (32-36); Mean Corpuscular Hemoglobin 25.8 pg (26-34); Mean Corpuscular Volume 81.3 fl (80-100); Mean Platelet Volume 11.8 fl (7.4-10.4); Platelet Count Result 268 k/mm3 (150-375); Red Blood Count 4.49 M/mm3 (4.2-5.4); Red Cell Distribution Width 13.7 % (11.5-14.5); White Blood Count 8.1 K/mm3 (4.5-10.0)
[2020-02-09 05:46] LABS: Lipase 53 U/L (23-300)
[2020-02-09 05:50] LABS: Alanine Aminotransferase 56 U/L (4-35); Albumin Level 4.2 g/dL (3.5-5.1); Alkaline Phosphatase 133 U/L (38-126); Aspartate Amino Transferase 58 U/L (14-36); Bilirubin,Total 0.6 mg/dL (0.2-1.3); Blood Urea Nitrogen 8 mg/dL (7-17); Calcium 9.3 mg/dL (8.4-10.2); Carbon Dioxide 23 mmol/L (22-30); Chloride 105 mmol/L (98-107); Estimated CRCL calculation 111 ml/min; Estimated Glomerular Filt Rate > 60; Glucose 90 mg/dL (65-105); Potassium 4.4 mmol/L (3.4-5.0); Sodium 137 mmol/L (137-145)
--- NOTE | 2020-02-09 07:43 | WPDANESPN ---
Anes - Prog Note Post-Op Date/Time: 02/09/20 07:43 Cardiovascular status: normal Respiratory status: normal Airway patency: baseline Mental status: baseline Post-Op hydration status: normal Vital Signs: Last Vital Signs Temp 36.8 C 02/09/20 06:00 Pulse 44 L 02/09/20 06:00 Resp 18 02/09/20 06:00 BP 112/57 L 02/09/20 06:00 Pulse Ox 100 02/09/20 06:00 I/O: Intake & Output 02/08/20 02/08/20 02/09/20 15:59 23:59 07:59 Intake Total 891 711 8185 Output Total 400 Balance 358 02 6107 Laboratory Tests 02/09/20 05:18 02/09/20 05:18 02/08/20 02/08/20 02/08/20 11:10 17:08 17:08 WBC 12.5 H RBC 4.68 Hgb 12.1 Hct 38.4 MCV 82.1 MCH 25.9 L MCHC 31.5 L RDW 13.8 Plt Count 250 MPV 11.8 H Immature Gran % (Auto) 0.6 H Neut % (Auto) 90.4 H Lymph % (Auto) 7.1 L Durham % (Auto) 1.5 L Eos % (Auto) 0.2 Baso % (Auto) 0.2 Lymph # (Auto) 0.89 L [place] # (Auto) 0.2 Eos # (Auto) 0.0 Baso # (Auto) 0.0 Abs Immat Gran (auto) 0.07 H Absolute Neuts (auto) 11.3 H Absolute Nucleated RBC 0.0 Nucleated RBC % 0.0 PT 13.2 INR 1.0 Sodium Potassium Chloride Carbon Dioxide BUN Creatinine Estim Creat Clear Calc Estimated GFR Glucose Calcium Total Bilirubin Direct Bilirubin AST ALT Alkaline Phosphatase Total Protein Albumin Lipase Blood Type A Positive Antibody Screen Positive Antibody Identification Anti-S Antigen Identification E Antigen - NEGATIVE JANE, IgG Interpret Negative JANE, Poly Interpret Negative JANE, Complement Interp Not Performed 02/08/20 02/09/20 02/09/20 17:08 05:18 05:18 WBC 8.1 RBC 4.49 Hgb 11.6 L Hct 36.5 L MCV 81.3 MCH 25.8 L MCHC 31.8 L RDW 13.7 Plt Count 268 MPV 11.8 H Immature Gran % (Auto) Neut % (Auto) Lymph % (Auto) Durham % (Auto) Eos % (Auto) Baso % (Auto) Lymph # (Auto) [place] # (Auto) Eos # (Auto) Baso # (Auto) Abs Immat Gran (auto) Absolute Neuts (auto) Absolute Nucleated RBC Nucleated RBC % PT INR Sodium Potassium Chloride Carbon Dioxide BUN Creatinine Estim Creat Clear Calc Estimated GFR Glucose Calcium Total Bilirubin 0.7 Direct Bilirubin 0.0 AST 170 H ALT 66 H Alkaline Phosphatase 177 H Total Protein 7.0 Albumin 4.5 Lipase 53 Blood Type Antibody Screen Antibody Identification Antigen Identification JANE, IgG Interpret JANE, Poly Interpret JANE, Complement Interp 02/09/20 05:18 WBC RBC Hgb Hct MCV MCH MCHC RDW Plt Count MPV Immature Gran % (Auto) Neut % (Auto) Lymph % (Auto) Durham % (Auto) Eos % (Auto) Baso % (Auto) Lymph # (Auto) [place] # (Auto) Eos # (Auto) Baso # (Auto) Abs Immat Gran (auto) Absolute Neuts (auto) Absolute Nucleated RBC Nucleated RBC % PT INR Sodium 137 Potassium 4.4 Chloride 105 Carbon Dioxide 23 BUN 8 Creatinine 0.80 Estim Creat Clear Calc 111 Estimated GFR > 60 Glucose 90 Calcium 9.3 Total Bilirubin 0.6 Direct Bilirubin AST 58 H ALT 56 H Alkaline Phosphatase 133 H Total Protein 7.0 Albumin 4.2 Lipase Blood Type Antibody Screen Antibody Identification Antigen Identification JANE, IgG Interpret JANE, Poly Interpret JANE, Complement Interp Post-procedural complaints: none Patient Feedback: Patient satisfied with anesthetic care.
--- NOTE | 2020-02-09 10:21 | WPDANESEPPF ---
Anes - Initial Pre Proc Eval Procedure: Operation Date: 02/08/20 12:30 Proposed Procedures p Laparoscopic Cholecystectomy with Intra Operative Cholangiograms - Neo Lux DO Operation Date: 02/09/20 13:00 Proposed Procedures p EGD & Endo Retro Cholangiopancreatogram - Sigifredo Liao MD Date/Time: 02/09/20 10:21 Surgeon: Neo Lux DO Pre Op Diagnosis: biliary dyskenisia, elevated LFT's Patient Data Age: 24 Gender: F Height: 1.73 m Weight: 87.5 kg Last Vital Signs Temp 36.8 C 02/09/20 06:00 Pulse 44 L 02/09/20 06:00 Resp 18 02/09/20 06:00 BP 112/57 L 02/09/20 06:00 Pulse Ox 100 02/09/20 06:00 Allergies Allergy/AdvReac Type Severity Reaction Status Date / Time No Known Allergies Allergy Verified 01/31/20 16:31 Home Medications Medication Instructions Recorded Confirmed Type [id number] 1 cap PO DAILY 01/31/20 01/31/20 History [One-A-Day Women's 1] Laboratory Tests 02/08/20 02/08/20 02/08/20 11:10 17:08 17:08 WBC 12.5 K/mm3 H K/mm3 (4.5-10.0) RBC 4.68 M/mm3 M/mm3 (4.2-5.4) Hgb 12.1 g/dL g/dL (12.0-15.0) Hct 38.4 % % (37.0-47.0) MCV 82.1 fl fl (80-100) MCH 25.9 pg L pg (26-34) MCHC 31.5 g/dl L g/dl (32-36) RDW 13.8 % % (11.5-14.5) Plt Count 250 k/mm3 k/mm3 (150-375) MPV 11.8 fl H fl (7.4-10.4) Immature Gran % (Auto) 0.6 % H % (0-0.5) Neut % (Auto) 90.4 % H % (45.5-73.1) Lymph % (Auto) 7.1 % L % (18.3-44.2) Baxter % (Auto) 1.5 % L % (2.6-8.5) Eos % (Auto) 0.2 % % (0-4.4) Baso % (Auto) 0.2 % % (0.2-1.2) Lymph # (Auto) 0.89 K/mm3 L K/mm3 (0.9-3.2) Baxter # (Auto) 0.2 K/mm3 K/mm3 (0.1-0.6) Eos # (Auto) 0.0 K/mm3 K/mm3 (0-0.3) Baso # (Auto) 0.0 K/mm3 K/mm3 (0.0-0.1) Abs Immat Gran (auto) 0.07 K/mm3 H K/mm3 (0.00-0.031) Absolute Neuts (auto) 11.3 K/mm3 H K/mm3 (1.3-6.7) Absolute Nucleated RBC 0.0 K/mm3 K/mm3 (0.0-0.012) Nucleated RBC % 0.0 % % (0.0-0.2) PT 13.2 Seconds Seconds (11.1-14.7) INR 1.0 Sodium Potassium Chloride Carbon Dioxide BUN Creatinine Estim Creat Clear Calc Estimated GFR Glucose Calcium Total Bilirubin Direct Bilirubin AST ALT Alkaline Phosphatase Total Protein Albumin Lipase Blood Type A Positive Antibody Screen Positive Antibody Identification Anti-S Antigen Identification E Antigen - NEGATIVE JANE, IgG Interpret Negative JANE, Poly Interpret Negative JANE, Complement Interp Not Performed 02/08/20 02/09/20 02/09/20 17:08 05:18 05:18 WBC 8.1 K/mm3 K/mm3 (4.5-10.0) RBC 4.49 M/mm3 M/mm3 (4.2-5.4) Hgb 11.6 g/dL L g/dL (12.0-15.0) Hct 36.5 % L % (37.0-47.0) MCV 81.3 fl fl (80-100) MCH 25.8 pg L pg (26-34) MCHC 31.8 g/dl L g/dl (32-36) RDW 13.7 % % (11.5-14.5) Plt Count 268 k/mm3 k/mm3 (150-375) MPV 11.8 fl H fl (7.4-10.4) Immature Gran % (Auto) Neut % (Auto) Lymph % (Auto) Baxter % (Auto) Eos % (Auto) Baso % (Auto) Lymph # (Auto) Baxter # (Auto) Eos # (Auto) Baso # (Auto) Abs Immat Gran (auto) Absolute Neuts (auto) Absolute Nucleated RBC Nucleated RBC % PT INR Sodium Potassium
[2020-02-09] MEDS: LACTATED RINGERS 1,000 ML 150 ML IV CONT (10:39)
--- NOTE | 2020-02-09 11:50 | SUR.OPER ---
DISTAL END CAP ACCOUNTED FOR BEFORE AND AFTER CASE. STACEY CALVILLO
--- NOTE | 2020-02-09 11:56 | SUR.PHASEII ---
PATIENT ARRIVES IN ENDOSCOPY RECOVERY- FACEMASK AT 8L WITH ORAL AIRWAY IN PLACE- PA REMOVES AIRWAY AND FACEMASK REMOVED AT 1145- O2 SATS AT 100% PATIENTS LUNGS CLEAR BILATERALLY- STATES FREE OF PAIN AND NAUSEA
[2020-02-09] MEDS: MULTIVIT/MIN/PREN/FOL AC/IRON TABLET 1 TAB PO (13:06)
--- NOTE | 2020-02-09 14:57 | PM.DS ---
DS: Admitting Diagnosis Admitting Diagnosis Admitting Diagnosis: Biliary dyskinesia DS: Discharge Diagnosis Discharge Diagnosis (1) Biliary dyskinesia: Code(s): K82.8 - Other specified diseases of gallbladder Status: Acute (2) Elevated LFTs: Code(s): R79.89 - Other specified abnormal findings of blood chemistry Status: Acute (3) Choledocholithiasis: Code(s): K80.50 - Calculus of bile duct without cholangitis or cholecystitis without obstruction Status: Acute Assessment and Plan: S/p ERCP with findings of no common bile duct stone. Could have passed spontaneously prior. Will continue to trend LFTs as an outpatient. DS: Summary Hospital Course Reason for hospitalization: This is a 24-year-old woman who presented as an outpatient with prior attacks of upper abdominal pain with nausea and vomiting. She had previously gone to the emergency department, and workup showed slightly elevated liver enzymes. Gallbladder ultrasound showed evidence of a mildly dilated common bile duct but no definite choledocholithiasis. She was referred for further evaluation. She was continuing to have intermittent symptoms. Decision was made to proceed with laparoscopic cholecystectomy by Dr. Lux. Hospital Course: She underwent laparoscopic cholecystectomy with IOC by Dr. Lux on 02/08/20. The IOC showed a near complete occlusion near the end of the common bile duct concerning for choledocholithaisis with associated elevated LFTs. Gastroenterology was consulted following surgery to evaluate the patient for ERCP. Dr. Liao saw the patient and she had an ERCP today with no stones noted in the common bile duct. The patient was recovered and sent back to the medical floor. I saw the patient today following ERCP and she was eating a full liquid diet without any complications. Denies nausea, vomiting, bloating, or abdominal pain at this time. Reports her abdomen is slightly tender at the incisions with movement, but at rest no pain. She reports flatus and is tolerating activity. Discussed her case with Dr. Lux and the patient can be discharged later today if she is tolerating a low fat diet without any abdominal pain or complaints. No other complaints from the patient at this time. Her LFTs are still slightly elevated but with a normal total bilirubin today. Will follow her LFTs as an outpatient and repeat these labs prior to her follow-up with Dr. Lux. Status at Discharge Functional status at discharge: independent ambulation Overall status at discharge: patient is progressing back to baseline Time Spent with Patient Time attestation: Total time spent providing and/or coordinating discharge services: Time spent: Less than 30 minutes Exam Const: General: comfortable, no acute distress, alert and awake Orientation/consciousness: patient oriented x3 Resp: Effort & Inspection: normal respiratory effort and able to speak in complete sentences GI: Inspection: non-distended and incision (Abdominal incisions clean/dry/intact.) GI Palp: Yes Soft to palpation, Yes Tenderness to palpation present (GI) (incisional), No Guarding due to palpation present (GI) and No Rebound tenderness present Auscultation: normal bowel sounds Neuro: General: patient oriented x3 and moves all extremities Cranial nerves: Yes CN's II-XII intact bilaterally Speech: normal speech Extrem: General: no calf tenderness and no edema Psych: Mental Status: mental status grossly normal Attitude: cooperative Thought process: Normal thought process present Thought content: Yes Normal thought content present DS: Data Data Completed and Pending Pending studies at discharge: Pending at discharge 02/08/20 13:32 Surgical [PTH] Routine Labs on day of discharge: Labs from last 24 hours 02/09/20 02/09/20 02/09/20 05:18 05:18 05:18 WBC 8.1 RBC 4.49 Hgb 11.6 L Hct 36.5 L MCV 81.3 MCH 25.8 L MCHC 31.8 L RDW 13.7 P
== END 2020-02-09 18:28 | disposition home or self-care (01) ==
LOC: ANHSURGERY 12:02 → ANH2MED 15:23
PROVIDERS: Internal Medicine Gastroenterology; PCP Family Medicine Sports Medicine; Visit Provider Surgery
PROC: 0FT44ZZ Resection of Gallbladder, Percutaneous Endoscopic Approach (ICD-10-PCS; CPT 47562; principal; 2020-02-08 12:30)
PROC: 0DJ08ZZ Inspection of Upper Intestinal Tract, Via Natural or Artificial Opening Endoscopic (ICD-10-PCS; CPT 43235; principal; 2020-02-09 13:00)
DX: K80.10 Calculus of gallbladder with chronic cholecystitis without obstruction (principal); R79.89 Other specified abnormal findings of blood chemistry
CPT/HCPCS: 47563; 43262; 36415; 74300; 74329; 80053; 80076; 83690; 85025; 85027; 85610; 86850; 86870; 86880; 86900; 86901; 86902; 88304; A9270; J0131; J0330; J0690; J1100; J1741; J2250; J2405; J2704; J2710; J2765; J3010; J7030; J7120; Q9966

== ENCOUNTER 2021-07-18 08:46 | Emergency (ER) | payer OTHER, BC, SELFPAY ==
[2021-07-18 08:55] VITALS: BP 132/76; PULSE 74; RESP 16; TEMP 36.5; O2SAT 100
--- NOTE | 2021-07-18 08:56 | ED.URI ---
HPI - URI/Sore Throat General Chief Complaint: Ear Stated Complaint: sinus infection Time Seen by Provider: 07/18/21 08:56 Source: patient, RN notes reviewed and old records reviewed Mode of arrival: ambulatory Limitations: no limitations History of Present Illness HPI Narrative: 25-year-old female presents to the [facility] with complaints of I think I have a sinus infection. Patient states that last night she developed right ear pain and had drainage. Patient reports she has had sinus issues for the last 3 days but it is better today, right ear started hurting last night decreased hearing and drainage. Denies any fevers. No chest pain or shortness of breath. No abdominal pain, nausea or vomiting. Has not taken anything for her symptoms. Related Data Home Medications Medication Instructions Recorded Confirmed One-A-Day Women's 1 1 cap PO DAILY 01/31/20 02/23/20 Allergies Allergy/AdvReac Type Severity Reaction Status Date / Time No Known Allergies Allergy Verified 07/18/21 08:53 Review of Systems Review of Systems: All systems reviewed & are unremarkable except as noted in HPI and below Constitutional: Constitutional: Reports no additional constitutional complaints, Denies chills and Denies fever(s) Eyes: Eyes: Reports no additional eye complaints ENT: Reports as per HPI Comments: Sinusitis, right ear discomfort, drainage, decreased hearing Cardiovascular: Cardiovascular: Reports no additional cardiovascular complaints and Denies chest pain Respiratory: Respiratory: Reports no additional respiratory complaints, Denies cough and Denies dyspnea Gastrointestinal: Gastrointestinal: Reports no additional gastrointestinal complaints, Denies abdominal pain, Denies nausea and Denies vomiting Musculoskeletal: Musculoskeletal: Reports no additional musculoskeletal complaints Integumentary/Breasts: Skin/Breast: Reports system reviewed and no additional complaints, except as docu Neurologic: Reports system reviewed and no additional complaints, except as documented Psychiatric: Psychiatric: Reports no additional psychiatric complaints Allergic/Immunologic: Allergic/Immunologic: Reports no additional allergic/immunologic complaints [facility] Past Medical History Medical History (Updated 07/18/21 @ 09:01 by Jo Owens) Asthma Surgical History Surgical History H/O arthroscopy right foot 2014 History of ear surgery mastoid surgery on right side at age 13 History of tonsillectomy age 12 Hx of tympanostomy tubes age 7 Family History Family History Unknown Diabetes mellitus Other Unknown family medical history Social History Social History Smoking status: Never smoker Alcohol intake: never Substance use: never 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 There is no relevant family history pertinent to the patient complaint. Exam Const: General: healthy appearing, no acute distress and alert Nutritional Appearance: well nourished Orientation/consciousness: patient oriented x3 Limitations: no limitations HENMT: Head: normal to inspection Ears: external ears normal, TM normal on the left, EAC's normal and TM abnormal erythematous on the right and with loss of landmarks on the right; not perforated General nose exam: Normal external nose present and Normal nasal mucous membranes and turbinates present Face and sinus: normal facial exam Mouth: Yes Normal oral and palatal mucosa present and Yes lip normal Throat: posterior oropharynx normal, tonsils normal and uvula midline Eyes: Conjunctivae: conjunct
== END 2021-07-18 09:03 | disposition home or self-care (01) ==
PROVIDERS: Emergency Provider Nurse Practitioner; PCP Family Medicine Sports Medicine
DX: H66.91 Otitis media, unspecified, right ear (principal); J45.909 Unspecified asthma, uncomplicated
CPT/HCPCS: 99213; G0463